=== PATIENT | female | born 1950 | race Caucasian/White ===

== ENCOUNTER 2023-01-21 17:26 | Emergency (ER) | payer MEDICARE ==
[~2023-01-21] VITALS: Ht 165.1 cm; Wt 65.8 kg
[2023-01-21 18:00] LABS: BASOPHILS % (AUTO) 0.5 % (0.0-5.0); EOSINOPHILS % (AUTO) 0.5 % (0.0-8.0); HEMATOCRIT 38.4 % (36-48); LYMPHOCYTES % (AUTO) 44.2 % (21.0-51.0); MEAN CORPUSCULAR HEMOGLOBIN 31.8 pg (27.0-33.0); MEAN CORPUSCULAR HGB CONC 32.8 g/dL (32.0-36.0); MONOCYTES % (AUTO) 7.3 % (3.0-13.0); NEUTROPHILS % (AUTO) 47.1 % (40.0-77.0); PLATELET COUNT (AUTO) 209 K/uL (130-400); RED BLOOD CELL COUNT(AUTO) 3.96 MIL/uL (4.00-5.50); RED CELL DISTRIBUTION WIDTH 13.2 % (11.0-15.5); WHITE BLOOD COUNT (AUTO) 7.4 K/uL (4.8-10.8)
[2023-01-21] MEDS ORDERED: LABETALOL 20MG VIAL IV ONE (18:00)
[2023-01-21] MEDS ORDERED: KETOROLAC 15MG/ML VIAL (15MG/ML) IV ONE (18:00)
[2023-01-21 18:08] LABS: APPEARANCE,URINE CLEAR (CLEAR); BILIRUBIN,URINE NEGATIVE (NEGATIVE); COLOR,URINE YELLOW (YELLOW); GLUCOSE, URINE (UA) NEGATIVE (NEGATIVE); KETONES,URINE NEGATIVE (NEGATIVE); LEUKOCYTE ESTERASE ,URINE NEGATIVE Leu/uL (NEGATIVE); NITRATE,URINE NEGATIVE (NEGATIVE); OCCULT BLOOD,URINE NEGATIVE (NEGATIVE); PROTEIN,URINE NEGATIVE (NEGATIVE); UROBILINOGEN,URINE 0.2 mg/dL (0.2-1.0)
[2023-01-21 18:08] LABS: CREATININE 0.9 mg/dL (0.5-1.5); POTASSIUM 3.6 mmol/L (3.5-5.1)
[2023-01-21 18:14] LABS: AMPHET/METH SCREEN,URINE NEGATIVE (NEGATIVE); BARBITURATE SCREEN, URINE NEGATIVE (NEGATIVE); BENZODIAZEPINES SCREEN,URINE NEGATIVE (NEGATIVE); CANNABINOID SCREEN,URINE NEGATIVE (NEGATIVE); COCAINE SCREEN,URINE NEGATIVE (NEGATIVE); OPIATE SCREEN,URINE NEGATIVE (NEGATIVE); PHENCYCLIDINE SCREEN,URINE NEGATIVE (NEGATIVE)
[2023-01-21 18:18] LABS: ALBUMIN 3.9 g/dL (3.5-5.0); TOTAL PROTEIN, SERUM 7.9 g/dL (6.0-8.3)
[2023-01-21] MEDS ORDERED: LABETALOL 20MG SYG IV ONE (18:30)
[2023-01-21] MEDS ORDERED: DiphenhydrAMINE HCL 50 MG/ML VIAL IM ONE (18:30)
[2023-01-21] MEDS ORDERED: DiphenhydrAMINE HCL 50 MG/ML VIAL IV ONE (19:00)
[2023-01-21] MEDS ORDERED: HYDRALAZINE 20MG/ML VIAL IV ONE (19:30)
[2023-01-21] MEDS ORDERED: ONDANSETRON 4MG INJ IVP ONE (20:30)
[2023-01-21] MEDS ORDERED: ACETAMINOPHEN 500 MG TABLET PO ONE (20:30)
[2023-01-21] MEDS ORDERED: MORPHINE 2 MG SYG IVP ONE ×2 (20:30→21:00)
[2023-01-21 21:43] VITALS: BP 132/70
== END 2023-01-21 21:51 | disposition home or self-care (01) ==
LOC: EDH 17:26
DX: I10 Essential (primary) hypertension (principal); G44.89 Other headache syndrome; Z90.710 Acquired absence of both cervix and uterus; Z88.8 Allergy status to other drugs, medicaments and biological substances
CPT/HCPCS: 99285; 84484; 80053; 80305; 85025; 81003; 36415; 71045; 70450; 96374; 96375; 96376; 93005; J1200; J0360; J2405; J1885

== ENCOUNTER 2024-12-06 08:53 | Emergency (ER) | payer MEDICARE ==
[~2024-12-06] VITALS: Ht 167.6 cm; Wt 68.0 kg
--- NOTE | 2024-12-06 09:08 | ERN ---
General Chief Complaint: Cough Stated Complaint: COUGH Time Seen by MD: 08:57 Source: patient History of Present Illness Initial Comments Is a 74-year-old female coming in to be evaluated for cough and congestion. Per patient she was had nasal congestion and sore throat. She was not short of breath but states that when she coughs she notices some phlegm. No fever or chills. Allergies: Coded Allergies: metoclopramide (Unverified Allergy, Unknown, 01/21/23) Past Medical History Past Medical History: Depression, High Cholesterol, Hypertension Medical History Other: SLEEP APNEA, COLITIS, OSTEOPOROSIS Past Surgical History: Hysterectomy, Tonsillectomy Surgical History Other: LT ANKLE SX, RT WRIST SX ROS Dictation CONSTITUTIONAL: No chills, no fever, no weakness, no diaphoresis, no malaise. HEAD/FACE: No signs of trauma. EENT: No eye pain, no blurred vision, no tearing, no double vision, no ear pain, no ear discharge, no nose pain, no nasal congestion, no throat pain, no throat swelling, no mouth pain. RESPIRATORY: cough, no orthopnea, no SOB, no stridor, no wheezing. CARDIOVASCULAR: No chest pain, no edema, no palpitations, no syncope. GASTROINTESTINAL/ABDOMINAL: No abdominal pain, no constipation, no diarrhea, no nausea, no vomiting. GENITOURINARY: No abnormal discharge, no dysuria, no frequent urination, no hematuria. No complaints of pain in the genitals. MUSCULOSKELETAL: No back pain, no gout, no joint pain, no joint swelling, no muscle pain, no muscle stiffness, no neck pain. INTEGUMENTARY: No change in color, no change in hair/nails, no dryness, no lesion, no lumps, no rash. NEUROLOGICAL/PSYCH: No anxiety, not depressed, no emotional problem, no headache, no numbness, no pre-existing deficit, no history of seizures, no tremors, no weakness. HEMATOLOGIC/LYMPHATIC: Not anemic, no history of blood clots, no apparent bleeding, no bruising, glands not swollen. All Systems Negative, Except as Noted. Physical Exam Physical Exam Dictation VITAL SIGNS: Reviewed. GENERAL APPEARANCE: Alert, oriented x3, no acute distress, obese. HEAD AND FACE: Non-traumatic. EYES: PERRL, pink conjunctivas, eyelid no trauma, anterior chamber clear. EARS: Pinnas intact and no signs of trauma or erythema. Ear canals clear and no discharge. TMs dull NOSE: No discharge, no bleeding. Left nasal turbinate swelling OROPHARYNX: Mouth normal, teeth no caries, tongue pink. Pharynx clear, no erythema. Tonsils no exudates, no abscesses noted. Mucous membrane moist. NECK: Supple, non-tender, no thyromegaly, no masses, no JVD, no bruits. BREAST: Deferred. CHEST: No tenderness, no crepitus, no paradoxical movement, no retractions. LUNGS: Clear, well-ventilated, symmetric, no rales, no wheezing, no rhonchi, no stridor, good breath sounds bilaterally. HEART: Regular rate, regular rhythm, no murmur, no gallops. VASCULAR: No peripheral edema. ABDOMEN: Soft, positive bowel sounds, nondistended, no guarding, nontender, no rebound, no masses no hepatomegaly, no splenomegaly, no Neri's sign, no hernias. RECTAL: Deferred. GENITAL: Deferred. NEUROLOGICAL: Normal speech, gross motor function intact, gross sensory function intact. MUSCULOSKELETAL: Neck nontender, full range of motion, back nontender, full range of motion. EXTREMITIES: Nontender, full range of motion. SKIN: Color pink, dry, no turgor, no rash, no lacerations, no abrasions, no contusions. LYMPHATICS: Deferred. Results Laboratory and Microbiology Lab and Micro Result Laboratory Tests Test 12/06/24 09:05 Influenza Type A Antigen Negative For Type A Influenza Type B Antigen Negative For Type B SARS-CoV-2, RNA, NAAT NEGATIVE SARS CoV-2 Labs Reviewed?: Yes MDM MDM: Differential diagnosis: URI, cough, sinusitis, COVID, flu Patient is a 74-year-old female coming in to be evaluated for URI symptoms. Patient states the symptoms began two days ago. She does not have a fever or chills. Laboratory workup negative for acute findings. On physical exam symptoms are more related to a sinusitis. Patient will be discharged with oral antibiotics as well as symptomatic management. ED Course Orders Procedure Category Date Status Time Covid Rna Naat LAB 12/06/24 Complete 09:01 Influenza Type A & B, LAB 12/06/24 Complete Rapid 09:01 Dexamethasone 4mg/Ml PHA 12/06/24 Complete 1ml Vial (Dexametha 09:30 Current Medications Medications (Trade) Dose Ordered Sig/Seferino Route PRN Reason Start Time Stop Time Status Last Admin Dose Admin Dexamethasone Sodium Phosphate (dexaMETHasone 4MG/ML 1ML VIAL) 4 mg ONCE ONCE IM 12/06/24 09:30 12/06/24 09:31 DC Vital Signs Date Time Temp Pulse Resp B/P (MAP) Pulse Ox O2 Delivery O2 Flow Rate FiO2 12/06/24 08:55 99.0 94 18 158/62 95 Room Air 0 DX & DISP Disposition: Discharge Departure Impression: Primary Impression: Sinusitis Condition: Stable Scripts Loratadine (Loratadine) 10 Mg Tablet 1 TAB PO DAILY for allergy symptoms for 30 Days, #30 TAB 0 Refills Prov: SETH GIORDANO MD 12/06/24 Fluticasone Propionate (Flonase Nasal [place]) 50 Mcg/Actuation [place] 2 SPRAY NS DAILY, #16 GM 0 Refills Prov: SETH GIORDANO MD 12/06/24 Amoxicillin/Potassium Clav (Amox Tr-K Clv 875-125 mg Tab) 875 Mg-125 Mg Tablet 1 TAB PO BID for 10 Days, #20 TAB 0 Refills Prov: SETH GIORDANO MD 12/06/24 Additional Instructions: FOLLOW-UP WITH PRIMARY CARE PROVIDER IN 1 TO 2 DAYS. TAKE MEDICATIONS DIRECTED HERE IN THE EMERGENCY ROOM. OKAY TO CONTINUE HOME MEDICATIONS UNLESS OTHERWISE DISCUSSED DURING YOUR VISIT IN THE EMERGENCY ROOM TODAY. RETURN TO YOUR NEAREST EMERGENCY ROOM IF SYMPTOMS WORSEN OR IF THERE IS NO IMPROVEMENT. CALL 911 IF YOU NEED IMMEDIATE ASSISTANCE. TAKE TYLENOL [id number] NEEDED AND IF NO CONTRAINDICATIONS ARE PRESENT. INCREASE ORAL HYDRATION. A WOUND CULTURE OR URINE CULTURE WAS ORDERED HERE IN THE EMERGENCY ROOM DEPARTMENT PLEASE FOLLOW-UP WITH PRIMARY CARE PROVIDER AND ADVISE THEM TO GET REPEAT PORTS FROM OUR FACILITY. IF YOU HAD ANY NICKY WRAP/SPLINTS THAT WERE APPLIED HERE, PLEASE DO NOT REMOVE THEM UNTIL YOU SEE YOUR PRIMARY CARE OR SPECIALTY. Referrals: Referrals: MIRZA KEANE (PCP) Time of Disposition: 09:44 SETH GIORDANO MD Dec 06, 2024 09:07
[2024-12-06 09:38] LABS: SARS-CoV-2, RNA, NAAT NEGATIVE SARS CoV-2 (NEGATIVE)
[2024-12-06 09:41] LABS: INFLUENZA TYPE A Negative For Type A (NEGATIVE); INFLUENZA TYPE B Negative For Type B (NEGATIVE)
[2024-12-06] MEDS ORDERED: FLUT16H NS (09:45)
[2024-12-06] MEDS ORDERED: AMOX1TAB16 PO (09:45)
[2024-12-06] MEDS ORDERED: LORA10TA7 PO (09:45)
[2024-12-06] MEDS: dexaMETHasone SOD PHOSPHATE 4 MG/ML 1ML VIAL IM ONE (11:19)
[2024-12-06 11:49] VITALS: BP 99/65; PULSE 91; RESP 17; TEMP 99.1; O2SAT 92
== END 2024-12-06 12:05 | disposition home or self-care (01) ==
LOC: EDH 08:53
DX: J32.9 Chronic sinusitis, unspecified (principal); E78.00 Pure hypercholesterolemia, unspecified; I10 Essential (primary) hypertension; Z90.710 Acquired absence of both cervix and uterus; Z20.822 Contact with and (suspected) exposure to COVID-19; Z98.890 Other specified postprocedural states
CPT/HCPCS: 99283; 87635; 87804 ×2; 96372; J1100

== ENCOUNTER → 2025-10-20 | Outpatient (CLI) | payer MEDICARE ==
--- NOTE | 2025-10-21 01:10 | HMCIMG ---
STUDY CT chest without IV contrast. HISTORY Other disorders of lung. TECHNIQUE Axial computed tomography images of the chest were obtained without intravenous contrast. COMPARISON CR chest 1 view, 09/13/2025 13:40 EST. FINDINGS Lungs No pulmonary mass is identified. Findings of chronic obstructive pulmonary disease with features of chronic bronchitis are present. Chronic lung changes are noted in the bilateral lower lungs, involving the superobasal and posterobasal segments, likely reflecting dependent change. Pleural spaces No pleural effusion or pneumothorax is demonstrated. Heart and mediastinum No cardiomegaly. No significant pericardial effusion. No mediastinal mass is seen. Lymph nodes No pathologically enlarged thoracic lymph nodes are identified. Upper abdomen The liver is enlarged, measuring approximately 17 cm in craniocaudal dimension, with imaging features compatible with hepatic steatosis. Remaining visualized upper abdominal solid organs are unremarkable. Bones No acute osseous abnormality is identified. IMPRESSION * CT features of chronic obstructive pulmonary disease with changes of chronic bronchitis and chronic lung changes in the bilateral lower lobes, most pronounced in the superobasal and posterobasal segments, likely in part dependent. * Hepatomegaly with imaging appearance consistent with fatty liver. * No acute intrathoracic abnormality. /[place]
== END | disposition home or self-care (01) ==
LOC: RAH 11:08
PROVIDERS: ATTEND Internal Medicine Pulmonary Disease
DX: J44.89 Other specified chronic obstructive pulmonary disease (principal); J96.11 Chronic respiratory failure with hypoxia; J98.4 Other disorders of lung; R93.89 Abnormal findings on diagnostic imaging of other specified body structures; K76.0 Fatty (change of) liver, not elsewhere classified; R16.0 Hepatomegaly, not elsewhere classified
CPT/HCPCS: 71250